=== PATIENT | female | born 1995 ===

== ENCOUNTER → 2019-07-01 | Outpatient (CLI) | payer OTHER | END | disposition home or self-care (01) | LOC: LAB 18:47 → LAB SHORT 18:47 | PROVIDERS: Family Medicine | DX: Z01.419 Encounter for gynecological examination (general) (routine) without abnormal findings (principal) | CPT/HCPCS: G0145 ==

== ENCOUNTER → 2024-07-07 | Outpatient (CLI) | payer OTHER | LOC: LAB 16:18 → LAB SHORT 16:18 | DX: R30.0 Dysuria (principal) | CPT/HCPCS: 87086 ==